=== PATIENT | male | born 1955 | race Caucasian/White ===

== ENCOUNTER 2016-08-15 10:57 | Emergency (ER) | payer BC ==
[2016-08-15] VITALS (16 sets, daily range): BP systolic 112–170; BP diastolic 64–98; PULSE 45–95; RESP 8–18; TEMP 97.8–97.9; O2SAT 99–100
[~2016-08-15] VITALS: Ht 172.7 cm; Wt 91.0 kg
[~2016-08-15 10:57] MED LIST: CIPR500T4 PO; CLIN150 PO; LORTA5 PO
[2016-08-15] MEDS ORDERED: ETOMIDATE 20 MG/10 ML VIAL ONE (11:00)
[2016-08-15] MEDS ORDERED: SUCCINYLCHOLINE CHLORIDE 200 MG/10 ML VIAL ONE (11:01)
[2016-08-15] MEDS ORDERED: PROPOFOL 500 MG/50 ML INJ 50 ML ONE (11:02)
[2016-08-15] MEDS ORDERED: SODIUM CHLOR 0.9% 1000 ML INJ 1,000 ML IV ONE ×2 (11:03→11:15)
[2016-08-15] MEDS ORDERED: MIDAZOLAM HCL 5 MG/ML VIAL (1 ML) ONE ×2 (11:13→11:20)
[2016-08-15] MEDS ORDERED: ETOMIDATE 20 MG/10 ML VIAL IV PUSH ONE (11:15)
[2016-08-15] MEDS ORDERED: SUCCINYLCHOLINE CHLORIDE 200 MG/10 ML VIAL IV PUSH ONE (11:15)
[2016-08-15 11:18] LABS: I-STAT POTASSIUM 3.5 MMOL/L (3.5-4.9); I-STAT SODIUM 140 MMOL/L (138-146)
[2016-08-15 11:19] LABS: BASOPHIL # 0.1 TH/MM3 (0-0.2); BASOPHIL % 1.3 % (0.0-2.0); EOSINOPHIL # 0.3 TH/MM3 (0-0.4); EOSINOPHIL % 3.1 % (0.0-4.0); HEMO FLAGS DIFF FINAL; LYMPH % 42.9 % (9.0-44.0); LYMPHOCYTE # 4.5 TH/MM3 (1.0-4.8); MEAN CORPUSCULAR HEMOGLOBIN 29.9 PG (27.0-34.0); MONO % 4.9 % (0.0-8.0); NEUT % 47.8 % (16.0-70.0); PLATELET COUNT 203 TH/MM3 (150-450); RED BLOOD COUNT 5.45 MIL/MM3 (4.50-5.90); RED CELL DISTRIBUTION WIDTH 13.7 % (11.6-17.2); WHITE BLOOD COUNT 10.5 TH/MM3 (4.0-11.0)
[2016-08-15 11:28] LABS: APTT (PATIENT) 25.5 SEC (24.3-30.1); PROTHROMBIN TIME - PATIENT 11.6 SEC (9.8-11.6)
[2016-08-15] MEDS ORDERED: MIDAZOLAM HCL 2 MG/2 ML VIAL IV ONE (11:30)
[2016-08-15] MEDS ORDERED: MIDAZOLAM HCL 2 MG/2 ML VIAL IV PUSH ONE ×2 (11:30)
[2016-08-15] MEDS ORDERED: MIDAZOLAM 100 MG/ML INJ 100 ML IV SCH (11:30)
[2016-08-15] MEDS ORDERED: fentaNYL DRIP 250 ML IV SCH (11:30)
[2016-08-15] MEDS ORDERED: niCARdipine INJ 25 MG in SODIUM CHLOR 0.9% 250 ML INJ 250 ML IV SCH (11:30)
[2016-08-15] MEDS ORDERED: PROPOFOL 200 MG/20 ML AMP IV ONE ×2 (11:30)
--- NOTE | 2016-08-15 11:33 | RADRPT ---
EXAM DATE/TIME: 08/15/2016 11:18 [facility] COMPARISON: No previous studies available for comparison. INDICATIONS : Stroke alert, found unresponsive. RADIATION DOSE: 42.63 CTDIvol (mGy) This report was called on the scanner at 1118 am MEDICAL HISTORY : Hypertension. basal cell carcinoma SURGICAL HISTORY : Appendectomy. ENCOUNTER: Initial ACUITY: 1 day PAIN SCALE: Non-responsive LOCATION: Bilateral head TECHNIQUE: Multiple contiguous axial images were obtained of the head. Using automated exposure control and adj ustment of the mA and/or kV according to patient size, radiation dose was kept as low as reasonably a chievable to obtain optimal diagnostic quality images. FINDINGS: There is enlarged subarachnoid hemorrhage without intraventricular blood. Most likely is from 8, ane urysm. Generalized cerebral edema is evident. Ventricular size is appropriate. Posterior fossa is unremarkable. CONCLUSION: Large subarachnoid hemorrhage.. Teddy Ibarra MD FACR on August 15, 2016 at 11:29 Board Certified Radiologist. This report was verified electronically.
[2016-08-15 11:40] LABS: CREATINE KINASE 101 U/L (39-308)
[2016-08-15] MEDS ORDERED: IOHEXOL 350 MG/ML 10 ML VIAL (for RAD DIAG) IV ONE (11:53)
--- NOTE | 2016-08-15 12:17 | RADRPT ---
EXAM DATE/TIME: 08/15/2016 11:39 [facility] COMPARISON: No previous studies available for comparison. INDICATIONS : Stroke alert. IV CONTRAST: 91 cc Omnipaque 350 (iohexol) IV ; Cumulative dose for multiple exams. RADIATION DOSE: 28.64 CTDIvol (mGy) ; Combined studies MEDICAL HISTORY : Non-responsive. SURGICAL HISTORY : Non-responsive. ENCOUNTER: Initial ACUITY: 1 day PAIN SCALE: Non-responsive LOCATION: Bilateral cranial TECHNIQUE: Volumetric scanning was performed using a multi-row detector CT scanner. The data was post processed with a variety of visualization algorithms including full volume maximum intensity projection, multi -planar sliding thin slab reformation, curved planar reformation, and surface rendering techniques. Using automated exposure control and adjustment of the mA and/or kV according to patient size, radiat ion dose was kept as low as reasonably achievable to obtain optimal diagnostic quality images. 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 This is associated with some surrounding parenchymal hemorrhage. Both anterior cerebral arteries are patent. Basilar artery is small and diminutive. Posterior cerebral is unremarkable. 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 This is as sociated with parenchymal hemorrhage. Teddy Ibarra MD FACR on August 15, 2016 at 11:56 Board Certified Radiologist. This report was verified electronically.
--- NOTE | 2016-08-15 12:19 | RADRPT ---
EXAM DATE/TIME: 08/15/2016 11:39 [facility] COMPARISON: CTA BRAIN W 3D RECON, August 15, 2016, 11:39. INDICATIONS : Stroke alert. IV CONTRAST: 91 cc Omnipaque 350 (iohexol) IV ; Cumulative dose for multiple exams. RADIATION DOSE: 28.64 CTDIvol (mGy) ; Combined studies MEDICAL HISTORY : Non-responsive. SURGICAL HISTORY : Non-responsive. ENCOUNTER: Initial ACUITY: 1 day PAIN SCALE: Non-responsive LOCATION: neck Elevated flow velocities and ICA/CCA ratios have been found to correlate with increased degrees of vessel stenosis, calculated as percentage of diameter relative to a normal segment of distal ICA/CCA. TECHNIQUE: Volumetric scanning was performed using a multirow detector CT scanner. The data was post processed with a variety of visualization algorithms including full-volume maximum intensity pro jection, multiplanar sliding thin-slab reformation, curved-planar reformation, and surface-rendering techniques. Using automated exposure control and adjustment of the mA and/or kV according to patient size, radiation dose was kept as low as reasonably achievable to obtain optimal diagnostic quality i mages. FINDINGS: AORTIC ARCH: There is a three-vessel origin of the great vessels from the aorta. No evidence of ostial narrowing. RIGHT CAROTID: The common carotid artery is intact. The carotid bulb has a normal configuration w ithout ulceration or narrowing. The internal carotid artery lumen is smooth without stenosis. The ex ternal carotid artery is intact. LEFT CAROTID: The common carotid artery is intact. The carotid bulb has a normal configuration w ithout ulceration or narrowing. The internal carotid artery lumen is smooth without stenosis. The e xternal carotid artery is intact. VERTEBRALS: The vertebral arteries have a symmetric diameter. No stenotic lesions are seen. CONCLUSION: Negative Teddy Ibarra MD FACR on August 15, 2016 at 12:14 Board Certified Radiologist. This report was verified electronically.
[2016-08-15 12:44] LABS: AMPHETAMINE, URINE NEG (NEG); BARBITURATES, URINE NEG (NEG); COCAINE, URINE NEG (NEG)
[2016-08-15 12:45] LABS: BACTERIA, URINE RARE /hpf; BLOOD, URINE SMALL (NEG); GLUCOSE,URINE NEG (NEG); HYALINE CAST, URINE 2 /lpf (RARE); KETONE, URINE TRACE mg/dL (NEG); MUCUS URINE FEW /lpf (OCC); NITRITE,URINE NEG (NEG); PH, URINE 5.5 (5.0-8.5); SQUAMOUS EPITHELIAL CELL URINE <1 /hpf (0-5); URINE COLOR YELLOW (YELLW/STRAW)
--- NOTE | 2016-08-15 12:50 | PD ---
HPI Chief Complaint: Stroke Alert Time Seen by Provider: 11:03 Travel History International Travel<30 days: No (UNKNOWN) Contact w/Intl Traveler<30days: No (UNKNOWN) History of Present Illness HPI 61-year-old male came to the emergency room brought by EMS emergently as a stroke alert. Patient was unresponsive with a GCS of 3 and in no condition to give any history. As per the paramedics patient was working on his lawn when all of a sudden he passed out. This happened at around 11 AM. His and friends who witnessed this called 911. Patient was completely normal and his baseline just before this happened. He was GCS of 3 and posturing when EMS arrived. They tried to intubate at the scene by giving him etomidate and for said. They were unable to and brought him with assisted ventilation ventilation via BVM. Patient arrived with a GCS of 3 and seems like decerebrate posturing. His blood pressure as per EMS was 160 systolic. There was no family member at that time when he was brought in to give any further history. I was unaware if he was on any blood thinners or not. [facility] Past Medical History Narrative Medical List of his past medical, surgical, social and family history as reviewed from the nursing note. Autoimmune Disease: No Anxiety: No Depression: No Heart Rhythm Problems: No Cancer: Yes (SKIN CANCER BASAL CELL CARCONOMA) High Cholesterol: No Chest Pain: No Congestive Heart Failure: No Coronary Artery Disease: Yes Diminished Hearing: No Endocrine: No Genitourinary: No Hypertension: Yes (BORDERLINE NO MEDS.) Immune Disorder: No Musculoskeletal: No Neurologic: No Psychiatric: No Reproductive: No Immunizations Current: No Radiation Therapy: No Past Surgical History Abdominal Surgery: Yes (APPENDX REMOVAL ) Appendectomy: Yes Arteriovenous Shunt: No Cardiac Surgery: Yes (ANGIOPLASTY 2004) Ear Surgery: No Endocrine Surgery: No Eye Surgery: No Genitourinary Surgery: No Gynecologic Surgery: No Insulin Pump: No Joint Replacement: No Oral Surgery: No Pacemaker: No Other Surgery: Yes (BASAL CELL) Social History Alcohol Use: Yes (OCC) Tobacco Use: Yes (ONE PPD) Substance Use: No Allergies-Medications (Allergen,Severity, Reaction): Coded Allergies: No Known Allergies (Verified , 08/15/16) Comments No known drug allergies. Reported Meds & Prescriptions Reported Meds & Active Scripts Active No Active Prescriptions or Reported Medications Narrative Medication List of his home medications reviewed from the nursing note. Review of Systems Except as stated in HPI: all other systems reviewed are Neg Physical Exam Narrative GENERAL: Unresponsive, decerebrate posturing, assisted ventilation via BVM SKIN: Focused skin assessment warm/dry. HEAD: Atraumatic. Normocephalic. EYES: Pupils equal and round. 1 mm, round, equal and reactive to light. No scleral icterus. No injection or drainage. ENT: No nasal bleeding or discharge. Mucous membranes pink and moist. NECK: Trachea midline. No JVD. CARDIOVASCULAR: Regular rate and rhythm. No murmur appreciated. RESPIRATORY: No accessory muscle use. Clear to auscultation. Breath sounds equal bilaterally. GASTROINTESTINAL: Abdomen soft, non-tender, nondistended. Hepatic and splenic margins not palpable. MUSCULOSKELETAL: No obvious deformities. No clubbing. No cyanosis. No edema. NEUROLOGICAL: GCS of 3, decerebrate posturing, no obvious unilateral motor deficit PSYCHIATRIC: Unable to assess Data Data Last Documented VS Vital Signs Date Time Temp Pulse Resp B/P Pulse Ox O2 Delivery O2 Flow Rate FiO2 08/15/16 16:42 80 14 115/70 100 Ventilator 100 08/15/16 15:30 97.8 Orders Etomidate Inj (Amidate Inj) (08/15/16 11:00) Succinylcholine Inj (Quelicin Inj) (08/15/16 11:01) Propofol 500 Mg/50 Ml Inj (Diprivan 500 (08/15/16 11:02) Diet Npo (08/15/16 Lunch) Activity Bed Rest (08/15/16 ) Electrocardiogram (08/15/16 ) I-Stat Creatinine (08/15/16 11:03) I-Stat Profile (08/15/16 11:03) Prothrombin Time / Inr (Pt) (08/15/16 11:03) Act Partial Throm Time (Ptt) (08/15/16 11:03) Complete Blood Count With Diff (08/15/16 11:03) Fibrinogen (08/15/16 11:03) Creatine Kinase (Cpk) (08/15/16 11:03) Troponin I (08/15/16 11:03) Ua Includes Microscopic (08/15/16 11:03) Drug Screen, Random Urine (08/15/16 11:03) Type And Screen (08/15/16 11:03) Ct Brain W/O Iv Contrast(Rout) (08/15/16 ) Blood Glucose (08/15/16 11:03) Ecg Monitoring (08/15/16 11:03) Neuro Checks Q2HX12,Q4H (08/15/16 11:03) Nursing Bedside Swallow Assess .ONCE (08/15/16 11:03) Iv Access Insert/Monitor (08/15/16 11:03) NPO (08/15/16 11:03) Oximetry (08/15/16 11:03) Oxygen Administration (08/15/16 11:03) Sodium Chlor 0.9% 1000 Ml Inj (Ns 1000 M (08/15/16 11:03) Resp Oxygen Brendan C Titrat 1-4 L (08/15/16 11:03) Cath For Specimen (08/15/16 11:03) Succinylcholine Inj (Quelicin Inj) (08/15/16 11:15) Etomidate Inj (Amidate Inj) (08/15/16 11:15) Propofol 1000 Mg/100 Ml Inj (Diprivan 10 (08/15/16 11:15) ^ Infusion (08/15/16 11:07) RASS (08/15/16 11:07) Neurological Rass Scale TESSA.Q2H (08/15/16 11:07) Sodium Chlor 0.9% 1000 Ml Inj (Ns 1000 M (08/15/16 11:15) Midazolam Inj (Versed Inj) (08/15/16 11:13) Midazolam Inj (Versed Inj) (08/15/16 11:30) Propofol 200 Mg/20 Ml Inj (Diprivan 200 (08/15/16 11:30) Propofol 200 Mg/20 Ml Inj (Diprivan 200 (08/15/16 11:30) Midazolam Inj (Versed Inj) (08/15/16 11:30) Nicardipine Inj (Cardene Inj) (08/15/16 11:30) Nicardipine Inj (Cardene Inj) (08/15/16 11:20) Midazolam Inj (Versed Inj) (08/15/16 11:20) Cta Brain W Iv Contrast W 3d (08/15/16 ) Cta Neck W Iv Contrast W 3d (08/15/16 ) Urinary Catheter Insert/Apply (08/15/16 11:22) Jorge-Gastric Tube Insert/Mon (08/15/16 11:22) Midazolam Inj (Versed Inj) (08/15/16 11:30) Midazolam Inj (Versed Inj) (08/15/16 11:30) Neurological Rass Scale Q30MX2,Q2HX4,Q4H (08/15/16 11:22) Neurological Rass Scale Q30MX2,Q2HX4,Q4H (08/15/16 11:22) ^ Infusion (08/15/16 11:22) Fentanyl Inj (Fentanyl Inj) (08/15/16 11:30) Fentanyl Drip (Fentanyl Drip) (08/15/16 11:30) Iohexol 350 Inj (Omnipaque 350 Inj) (08/15/16 11:53) Chest, Single Ap (08/15/16 ) Radiology Film Requests (08/15/16 ) Radiology Film Requests (08/15/16 ) Ventriculostomy TESSA.Q8H (08/15/16 14:36) ^ Other Nursing Orders (08/15/16 14:36) Arterial Blood Gas (Abg) (08/15/16 15:30) Nicardipine Inj (Cardene Inj) (08/15/16 16:00) Labs Laboratory Tests Test 08/15/16 08/15/16 08/15/16 11:00 11:05 15:30 White Blood Count 10.5 TH/MM3 Red Blood Count 5.45 MIL/MM3 Hemoglobin 16.3 GM/DL Bedside Hemoglobin 17.0 G/DL Hematocrit 48.0 % Bedside Hematocrit 50.0 % Mean Corpuscular Volume 88.0 FL Mean Corpuscular Hemoglobin 29.9 PG Mean Corpuscular Hemoglobin 34.0 % Concent Red Cell Distribution Width 13.7 % Platelet Count 203 TH/MM3 Mean Platelet Volume 9.3 FL Neutrophils (%) (Auto) 47.8 % Lymphocytes (%) (Auto) 42.9 % Monocytes (%) (Auto) 4.9 % Eosinophils (%) (Auto) 3.1 % Basophils (%) (Auto) 1.3 % Neutrophils # (Auto) 5.0 TH/MM3 Lymphocytes # (Auto) 4.5 TH/MM3 Monocytes # (Auto) 0.5 TH/MM3 Eosinophils # (Auto) 0.3 TH/MM3 Basophils # (Auto) 0.1 TH/MM3 CBC Comment DIFF FINAL Differential Comment Prothrombin Time 11.6 SEC Prothromb Time International 1.0 RATIO Ratio Activated Partial 25.5 SEC Thromboplast Time Fibrinogen 368 mg/dL Bedside Sodium 140 MMOL/L Bedside Potassium 3.5 MMOL/L Bedside Chloride 102 MMOL/L Bedside Blood Urea Nitrogen 14 MG/DL Bedside Creatinine 1.1 MG/DL Bedside Glucose 184 MG/DL Total Creatine Kinase 101 U/L Troponin I LESS THAN 0.02 NG/ML Blood Type A POSITIVE Antibody Screen NEGATIVE Blood Bank Comment Urine Color YELLOW Urine Turbidity CLEAR Urine pH 5.5 Urine Specific [place] 1.018 Urine Protein 30 mg/dL Urine Glucose (UA) NEG mg/dL Urine Ketones TRACE mg/dL Urine Occult Blood SMALL Urine Nitrite NEG Urine Bilirubin NEG Urine Urobilinogen LESS THAN 2.0 MG/DL Urine Leukocyte Esterase TRACE Urine RBC 6 /hpf Urine WBC 6 /hpf Urine Squamous Epithelial <1 /hpf Cells Urine Bacteria RARE /hpf Urine Hyaline Casts 2 /lpf Urine Mucus FEW /lpf Urine Opiates Screen NEG Urine Barbiturates Screen NEG Urine Amphetamines Screen NEG Urine Benzodiazepines Screen NEG Urine Cocaine Screen NEG Urine Cannabinoids Screen NEG Blood Gas Puncture Site RT RADIAL Blood Gas Patient Temperature 98.6 Blood Gas HCO3 24 mmol/L Blood Gas Base Excess 0.0 mmol/L Blood Gas Oxygen Saturation 98 % Arterial Blood pH 7.40 Arterial Blood Partial 40 mmHg Pressure CO2 Arterial Blood Partial 405 mmHG Pressure O2 Arterial Blood Oxygen Content 23.4 Vol % Arterial Blood 0.7 % Carboxyhemoglobin Arterial Blood Methemoglobin 0.9 % Blood Gas Hemoglobin 16.3 G/DL Oxygen Delivery Device VENTILATOR Blood Gas Ventilator Setting AC/14/600/+5 Blood Gas Inspired Oxygen 100 % [facility] Medical Decision Making Medical Screen Exam Complete: Yes Emergency Medical Condition: Yes Medical Record Reviewed: Yes Interpretation(s) Twelve-lead EKG was reviewed by me. Normal sinus rhythm, normal axis, nonspecific ST-T wave changes. Heart rate of 91 bpm. Differential Diagnosis Intracranial bleed, acute CVA, intracranial tumor Narrative Course 12:55 PM soon after patient arrived I decided to intubate him given his GCS and inability to protect his airway. Please refer to my procedure note for intubation. After intubation was done and patient was sedated he was taken emergently to the CT scanner. Head CT revealed a large subarachnoid hemorrhage. Because a stroke alert was called initially I spoke with the neurologist and let him know that patient obviously would not be a TPA candidate and I will contact neurosurgeon. Dr. Rodarte was the neurosurgeon and I spoke with him. Meanwhile CT angiogram of the brain and neck was ordered. He had me know that if the patient was not a candidate for a coil placement by IR then he would require to be transferred out to [facility] in [place]. Dr. Rodriguez from IR contacted me to let me know that patient had a large 1-1.5 cm anterior communicating artery aneurysm which would be difficult to be coiled by him and hence either the neurosurgeon has to take care of it or patient would require to be transferred out. I let the neurosurgeon know about this and he definitely wanted the patient to be transferred to [facility] at [place] at this point. Transfer center for [facility] was contacted and they questioned the reason for the patient not to be transferred to the nearest facility which would be [facility]. Once again the neurosurgeon was contacted and at this point he agreed to transfer the patient to the nearest facility if they were able to successfully do the procedure. Currently waiting for [facility] neurosurgeon to be contacted to discuss the case and hopefully except the patient. Patient is on Versed and fentanyl drip for sedation and Cardene drip for maintenance of his blood pressure. I've given the parameter of 120-140 mmHg for systolic blood pressure. I spoke with his and the burial vault maker from his [employer] who are here currently to update them about his condition. 1:12 PM I just spoke with the transfer center in [facility] and spoke with the neurosurgeon Dr. Whitlock. He wants to find out from our neurosurgeon if patient will need to get a ventriculostomy or not. I let them know that I will speak with our neurosurgeon. Meanwhile they're making arrangements to send a team to fly the patient to [facility]. I also spoke with the glass smoother Dr. Mendiola at [facility] who has accepted the patient. 1:[address] Rodarte said the patient did not have hydrocephalus but he'll come down and put the ventriculostomy shunt. Awaiting for the procedure to be done by him emergently and then the transfer. Critical Care Narrative Aggregate critical care time was 90 minutes. Time to perform other separately billable procedures was not included in the critical care time. My time did not include minutes spent treating any other patients simultaneously or on activities that did not directly contribute to the patient's treatment. The services I provided to this patient were to treat and/or prevent clinically significant deterioration that could result in: Subarachnoid hemorrhage, large aneurysm, transfer I provided critical care services requiring my management, as noted below: Chart data review, documentation time, medication orders and management, vital sign assessments/reviewing monitor data, ordering and reviewing lab tests, ordering and interpreting/reviewing x-rays and diagnostic studies, care of the patient and discussion of the patient with the admitting physicians. Procedures Procedure Narrative After the risks and benefits were discussed the following procedure was performed: INTUBATION: The patient was put in optimal position for the procedure. Rapid sequence intubation was initiated by me using 20 milligrams of etomidate IV and 100 milligrams of succinylcholine IV. The patient was intubated with a 7.5 cuffed endotracheal tube. Tube placement was confirmed by visualization of the tube and balloon passing through the cords, capnometry and subsequent chest x-ray. Breath sounds were equal and well aerated bilaterally postintubation. No breath sounds over stomach. Patient tolerated procedure well. EKG Prior to Arrival: No Physician Communication Physician Communication , Dr. Fuchs, Dr. Rodriguez, Dr. Ibarra, Dr. Yousif, Dr. Mendiola Diagnosis Primary Impression: Subarachnoid hemorrhage due to ruptured aneurysm Additional Impressions: Unresponsive Respiratory failure Qualified Code: J96.00 - Acute respiratory failure, unspecified whether with hypoxia or hypercapnia Admitting Information Admitting Physician Requests: Admit Scripts No Active Prescriptions or Reported Meds Disposition: 70 TRANSFER TO OTHER FACILITY Elizabeth Hernandez MD Aug 15, 2016 12:50
[2016-08-15] MEDS: PROPOFOL 1000 MG/100 ML INJ 100 ML IV SCH ×2 (13:11→16:08)
--- NOTE | 2016-08-15 13:19 | RADRPT ---
EXAM DATE/TIME: 08/15/2016 12:39 [facility] COMPARISON: CT BRAIN W/O CONTRAST, August 15, 2016, 11:18. CTA BRAIN W 3D RECON, August, 11:39. INDICATIONS : Post intubation MEDICAL HISTORY : Unobtainable SURGICAL HISTORY : Unobtainable ENCOUNTER: Initial ACUITY: 1 day PAIN SCORE: Non-responsive. LOCATION: Bilateral chest FINDINGS: ET tube and nasogastric tube are in good position. The lungs are clear. Heart and pulmonary vascula rity are normal. Portion of bony skeleton visualized is unremarkable. CONCLUSION: ET tube in good position. Teddy Ibarra MD FACR on August 15, 2016 at 13:12 Board Certified Radiologist. This report was verified electronically.
--- NOTE | 2016-08-15 14:18 | PD.OP ---
cc: Arun Rodarte MD Operative Report Date of Surgery: Aug 15, 2016 Preoperative Diagnosis: Subarachnoid hemorrhage from a ruptured large anterior communicating artery aneurysm Postoperative Diagnosis: Same Procedure: Right frontal twist drill hole ventriculostomy placement Anesthesia: Local with sedation Surgeon: Arun Rodarte M.D. Door Opener(s): None Operation and Findings: Following continuation of Diprivan, fentanyl and Versed drips with the oxygen saturation and hemodynamic monitoring in the emergency room, the right frontal region was shaved and the prep with chloraprep and sterilely draped. Using landmarks of 11 cm behind the nasion and 3 cm to the right of the midline, a 1 cm scalp incision was made after infiltrating with 1% lidocaine with epinephrine solution. With a handheld drill a twist drill hole was made in the underlying dura penetrated with a blunt probe. The bactiseal ventriculostomy catheter was then passed into the lateral ventricle at a depth of 7 cm slightly blood-tinged CSF encountered with an opening pressure around 6 cm H20. The distal end of the ventriculostomy was then tunneled under the scalp with a trocar and secured to the exit site with a 3-0 nylon thigh and connected to a drainage bag. Scalp incision site was approximated with 3-0 nylon interrupted stitches A sterile dressing was applied. There were no complications and blood loss was less than 5 cc. Arun Rodarte MD Aug 15, 2016 14:18
--- NOTE | 2016-08-15 15:33 | MB ---
cc: RANCHO BARONE M.D. DATE OF CONSULTATION: 08/15/2016 REASON FOR CONSULTATION: Subarachnoid hemorrhage. HISTORY OF PRESENT ILLNESS: The patient is a 61-year-old gentleman who was working on his lawn this morning when he suddenly passed out and became comatose. EMS was summoned and when they arrived, he was posturing and unresponsive. They tried to intubate for respiratory failure but were unsuccessful and the patient was brought to [facility] where he was intubated in the emergency room. He was hypertensive initially with a systolic blood pressure in the 160s. Workup included CT scan of the head which reveals extensive subarachnoid hemorrhage involving the basal cisterns as well as the interhemispheric fissure, and bilateral sylvian fissures. There is no hydrocephalus with the normal intraventricular size. There is some blood noted in the fourth ventricle also. CT angiogram of the brain was also obtained and reveals about an 11 millimeter interior communicating artery aneurysm which is pointing anteriorly and superiorly. PAST MEDICAL HISTORY Coronary artery status post angioplasty / stent. COPD from chronic smoking. MEDICATIONS: None. ALLERGIES: NO KNOWN DRUG ALLERGIES. SOCIAL HISTORY: His is here with him along with his son and other relatives. He drinks alcohol on an occasional basis and smokes a pack a day of cigarettes. REVIEW OF SYSTEMS: Unobtainable. The patient is comatose. LABORATORY STUDIES: White blood cell count 10.5, hemoglobin 16.3, platelet count of 203. PT is 11.6, INR 1.0. PTT 25.5, fibrinogen 368. Sodium 140, potassium 3.5, BUN 14, creatinine 1.1, glucose 184. PHYSICAL EXAMINATION: Vital signs: Temperature is 97.8, pulse is 95, respiratory rate 14, blood pressure 133/85, oxygen saturation 100%. Head: Normocephalic, atraumatic. Neck is supple. Chest: Clear bilaterally. Heart: Mild tachycardia, normal S1-S2. Abdomen: Soft, nontender. Extremities: No cyanosis or edema. Neurologic: He is intubated and sedated but sedation is withheld. He does not open his eyes. Pupils are about 3 millimeter bilaterally and react down to 2. He withdraws to painful stimulation. He does not open his eyes or follows commands. Palomares-Chen grade 4. IMPRESSION 1. Large anterior communicating artery ruptured aneurysm with extensive subarachnoid hemorrhage without any early hydrocephalus. 2. Hypertension. 3. History of coronary artery disease status post angioplasty. 4. COPD from chronic smoking. PLAN Our interventional radiologist at [place] has reviewed the CT angiogram and does not feel that they can adequately coil this large aneurysm and requested the patient be transferred to either [facility] or [facility], for more definitive treatment of the aneurysm. The patient has been accepted by the neurosurgeon and compounding assistant at [facility] and they requested placement of ventriculostomy prior to his transfer. This was discussed with the patient's family and they are in agreement. His condition obviously is critical with a guarded prognosis. He will be maintained on sedatives including Diprivan and fentanyl and Versed drips along with Cardene to keep the systolic blood pressure less than 140 to 150 range. MD CALVIN Duvall/SAHIL /2:12 PM /3:22 PM
[2016-08-15 15:39] LABS: BLOOD GAS CARBOXYHEMOGLOBIN 0.7 % (0-4); BLOOD GAS HCO3 24 mmol/L (22-26); BLOOD GAS METHEMOGLOBIN 0.9 % (0-2); BLOOD GAS O2 HGB SATURATION 98 % (90-100); BLOOD GAS OXYGEN CONTENT 23.4 Vol % (12.0-20.0); BLOOD GAS PCO2 40 mmHg (38-42); BLOOD GAS PO2 405 mmHG (61-120); BLOOD GAS TOTAL HGB 16.3 G/DL (12.0-16.0); CRITICAL VALUE NO; DRAW SITE RT RADIAL; FIO2 100 %; NUMBER OF ARTERIAL PUNCTURES 1; OXYGEN DEVICE VENTILATOR; TEMP CORR TO 98.6; VENT SETTINGS AC/14/600/+5
[2016-08-15 15:40] LABS: STAT NO; ULNAR PULSE PRESENT
--- NOTE | 2016-08-16 00:06 | EKG ---
Date Performed: 08/15/2016 Time Performed: 12:22:58 PTAGE: 61 years EKG: Sinus rhythm WITH SHORT ID INTERVAL BORDERLINE ECG PREVIOUS TRACING : 08/12/2010 10.09 DOCTOR: Peggy Rangel Interpretating Date/Time 08/16/2016 00:04:04
== END 2016-08-15 17:24 | disposition short-term general hospital (02) ==
LOC: NEPA 10:57
DX: I60.2 Nontraumatic subarachnoid hemorrhage from anterior communicating artery (principal); S06.6X9A Traumatic subarachnoid hemorrhage with loss of consciousness of unspecified duration, initial encounter; F17.210 Nicotine dependence, cigarettes, uncomplicated; X58.XXXA Exposure to other specified factors, initial encounter; Y93.H2 Activity, gardening and landscaping; Y92.096 Garden or yard of other non-institutional residence as the place of occurrence of the external cause; R00.0 Tachycardia, unspecified; J44.9 Chronic obstructive pulmonary disease, unspecified
CPT/HCPCS: 31500; 36600; 51702; 61107; 70450; 70496; 70498; 71010; 80307; 81001; 82435; 82550; 82565; 82805; 82947; 84132; 84295; 84484; 84520; 85025; 85384; 85610; 85730; 86850; 86900; 86901; 93005; 96361; 96365; 96366; 96368; 96374; 96375; 96376; 99291; 99292; J0330; J2250; J3010; J7030; J7050; Q9967